=== PATIENT | male | born 1980 | race Caucasian/White ===

== ENCOUNTER 2017-05-29 20:18 | Emergency (ER) | payer OTHER ==
[2017-05-29] MEDS ORDERED: NS 0.9% 1000 ML* 1,000 ML IV ONE (20:40)
[2017-05-29 21:22] LABS: Urine Bilirubin Negative (Negative); Urine Glucose Negative (Negative); Urine Nitrite Negative (Negative)
[2017-05-29 21:38] LABS: Hematocrit 38 % (42-52); Hemoglobin 12.5 g/dl (14.0-18.0); Mean Corpuscular HGB Conc 33 g/dl (31-36); Mean Corpuscular Hemoglobin 28 pg (27-31); Mean Corpuscular Volume 87 fL (80-94); Mean Platelet Volume 9 um3 (7.4-10.4); Red Blood Count 4.42 10^6/ul (4.0-5.4); Red Cell Distribution Width 13 % (10.5-15)
[2017-05-29 21:54] LABS: BUN/Creatinine Ratio 12.8 (8-20); Calcium 8.8 mg/dL (8.6-10.3); EGFR African American 117.5 (>60); EGFR Non-African American 91.3 (>60); Globulin 2.9 g/dL (2-4); Magnesium 1.9 mg/dL (1.9-2.7); Potassium 3.5 mmol/L (3.5-5.0); Total Bilirubin 0.3 mg/dL (0.2-1.0); Total Protein 6.9 g/dL (6.4-8.9)
--- NOTE | 2017-05-29 22:20 | ED ---
I, Oh,Soohmaninderun, scribed for Xavier Alonzo MD on 05/29/17 at 2044 . Dizziness - HPI Summary HPI Summary: This 37 y/o male presents to ED for lightheaded dizziness since 30 minutes ago. Positive near syncope, diaphoresiss, mild dyspnea, and intermittent nausea that is currently resolved. Sitting up makes dizziness worse. "I just don't feel normal". He also reports "honey on my tongue". Pt also reports intermittent episode of dizziness last night while eating out at [employer] last night, but pt had dismissed after its spontaneous resolution. He denies any PMHx. - History Of Current Complaint Chief Complaint: EDDizziness Stated Complaint: LIGHT HEADED, DIZZY, HEADACHES Time Seen by Provider: 05/29/17 20:29 Hx Obtained From: Patient Timing: Constant Character: Lightheaded Aggravating Factor(s): Position Change - sitting up Alleviating Factor(s): Nothing Associated Signs And Symptoms: Positive: Nausea, Diaphoresis, SOB. Negative: Vomiting, Fever - Allergies/Home Medications Allergies/Adverse Reactions: Allergies Allergy/AdvReac Type Severity Reaction Status Date / Time Penicillins Allergy Hives Verified 05/29/17 20:21 Sesame Oil Allergy Hives Verified 05/29/17 20:21 PMH/Surg Hx/FS Hx/Imm Hx Cardiovascular History: Denies: Hx Myocardial Infarction Sensory History: Denies: Hx Legally Blind Infectious Disease History: No Infectious Disease History: Denies: Traveled Outside the [place] in Last 30 Days - Family History Known Family History: Positive: Cardiac Disease - Father had triple bypass in late 60s. - Social History Hx Substance Use: No Substance Use Type: Reports: None Hx Tobacco Use: No Smoking Status (MU): Never Smoked Tobacco Review of Systems Positive: Skin Diaphoresis. Negative: Fever Positive: Shortness Of Breath Positive: Nausea. Negative: Vomiting Neurological: Other - Positive for lightheaded dizziness Positive: Syncope - near All Other Systems Reviewed And Are Negative: Yes Physical Exam Triage Information Reviewed: Yes Vital Signs On Initial Exam: Initial Vitals Temp Pulse Resp BP Pulse Ox 98.2 F 59 16 122/68 99 05/29/17 20:23 05/29/17 20:23 05/29/17 20:23 05/29/17 20:23 05/29/17 20:23 Vital Signs Reviewed: Yes Appearance: Positive: Well-Appearing, No Pain Distress, Well-Nourished Skin: Positive: Warm Head/Face: Positive: Normal Head/Face Inspection Eyes: Positive: EOMI, ERIN ENT: Positive: Hearing grossly normal Neck: Positive: Supple, Nontender Respiratory/Lung Sounds: Positive: Clear to Auscultation, Breath Sounds Present Cardiovascular: Positive: RRR Abdomen Description: Positive: Nontender, Soft Bowel Sounds: Positive: Present Musculoskeletal: Positive: Strength/ROM Intact Neurological: Positive: Sensory/Motor Intact, Alert, Oriented to Person Place, Time, Normal Gait Psychiatric: Positive: Affect/Mood Appropriate Diagnostics - Vital Signs Vital Signs Temp Pulse Resp BP Pulse Ox 05/29/17 20:23 98.2 F 59 16 122/68 99 - Laboratory Result Diagrams: 05/29/17 20:50 05/29/17 20:50 Lab Statement: Any lab studies that have been ordered have been reviewed, and results considered in the medical decision making process. - EKG 2054 Cardiac Rate: NL - 68 bpm EKG Rhythm: Sinus Rhythm Re-Evaluation - Re-Evaluation First Eval Change: Improved - results d/w pt Dizzy Course/Dx - Course Assessment/Plan: This 37 y/o male presents to ED for acute dizziness as well as diaphoresis and mild nausea. Dizziness is worse with position change from lying to sitting up. Blood work is unremarkable except for mild anemia. UA is normal. EKG is normal. Pt is stable throughout the ED course, and is discharge with outpatient f/u. - Diagnoses Provider Diagnoses: Dizziness Discharge - Discharge Plan Condition: Improved Disposition: HOME Patient Education Materials: Dizziness (ED) Referrals: Rodrigue Cooln MD [Primary Care Provider] - 2 Days The documentation as recorded by the Jose Alfredo torre Soohyun accurately reflects the service I personally performed and the decisions made by me, Xavier Alonzo MD.
[2017-05-29 23:29] VITALS: BP 102/68
== END 2017-05-29 23:23 | disposition home or self-care (01) ==
LOC: ED 20:18
DX: R42 Dizziness and giddiness (principal); R11.0 Nausea; R06.02 Shortness of breath; R55 Syncope and collapse
CPT/HCPCS: 36415; 80053; 81003; 83605; 83735; 84484; 85025; 93005; 99283